=== PATIENT | male | born 1935 | race Caucasian/White ===

== ENCOUNTER → 2017-04-19 | Outpatient (CLI) | payer MEDICARE, BC ==
[~2017-04-19] MED LIST: AMLO5TAB2 PO; ASPI-496 PO; ASPI-650 PO; CIPR500T3 PO; DIGO125T PO; FINA5TAB4 PO; HYDR-3237 PO; HYDR25TA6 PO; METO25TA91 PO; TAMS-11 PO; VALS160T3 PO
== END | disposition home or self-care (01) ==
LOC: CVU 11:41
PROVIDERS: ATTEND Internal Medicine Cardiovascular Disease
DX: R06.00 Dyspnea, unspecified (principal); R06.02 Shortness of breath
CPT/HCPCS: 93306; 94060; 94726; 94729

== ENCOUNTER → 2017-06-16 | Outpatient (CLI) | payer MEDICARE, BC ==
[~2017-06-16] MED LIST changes: +OMNIPAQUE 350 MG/ML, 150 ML BOTTLE ONE
[2017-06-16 14:22] LABS: CREATININE 0.66 mg/dL (0.7-1.3)
== END | disposition home or self-care (01) ==
LOC: CVU 12:32
PROVIDERS: ATTEND Internal Medicine Cardiovascular Disease
DX: Z01.818 Encounter for other preprocedural examination (principal); I65.23 Occlusion and stenosis of bilateral carotid arteries; I35.0 Nonrheumatic aortic (valve) stenosis; E11.9 Type 2 diabetes mellitus without complications
CPT/HCPCS: 36415; 71275; 74174; 82565; 93880; Q9967

== ENCOUNTER → 2017-08-23 | Outpatient (CLI) | payer MEDICARE, BC ==
[~2017-08-23] MED LIST changes: +CLOP75TA PO; -OMNIPAQUE 350 MG/ML, 150 ML BOTTLE ONE
== END | disposition home or self-care (01) ==
LOC: CVU 08:53
PROVIDERS: ATTEND Internal Medicine Cardiovascular Disease
DX: I08.3 Combined rheumatic disorders of mitral, aortic and tricuspid valves (principal); I10 Essential (primary) hypertension
CPT/HCPCS: 93306

== ENCOUNTER 2018-07-24 13:03 | Observation (INO) | payer MEDICARE, BC ==
[~2018-07-24] VITALS: Ht 177.8 cm; Wt 94.2 kg
[~2018-07-24 13:03] MED LIST changes: +AMLO-150 PO; -AMLO5TAB2 PO
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
--- NOTE | 2018-07-24 13:54 | NUR ---
bedside report to CLOVIS Brown.
[2018-07-24] MEDS ORDERED: DIPH,PERTUSS(ACELL),TET VAC/PF 0.5 ML IM-VACC ONE ×2 (14:20→14:30)
[2018-07-24] MEDS ORDERED: HYDROmorphone 1 MG/ML, 1ML ONE (14:20)
[2018-07-24] MEDS ORDERED: HYDROmorphone 1 MG/ML, 1ML IM PRN (14:30)
--- NOTE | 2018-07-24 14:39 | NUR ---
PT TO CT
[2018-07-24] MEDS ORDERED: ONDANSETRON 2MG/ML, 2ML ONE (14:49)
[2018-07-24] MEDS ORDERED: LORazepam 1MG TABLET ONE (14:55)
[2018-07-24] MEDS ORDERED: LABETALOL 5MG/ML, 20ML IVPush ONE (14:59)
[2018-07-24] MEDS ORDERED: LORazepam 1MG TABLET PO ONE (15:00)
[2018-07-24] MEDS ORDERED: LORazepam 2 MG/ML, 1ML IVPush ONE (15:00)
[2018-07-24] MEDS ORDERED: ONDANSETRON 2MG/ML, 2ML IVPush ONE (15:00)
--- NOTE | 2018-07-24 15:43 | NUR ---
NO IV LABETALOL IN MD JAYESH TO CHANGE TO HYDRALAZINE IV
[2018-07-24 15:52] LABS: BASOPHILS % (AUTO) 0 % (0-1); EOSINOPHILS % (AUTO) 0 % (1-7); LYMPHOCYTES # (AUTO) 0.83 x10^3/uL (1-3.4); LYMPHOCYTES % (AUTO) 8 % (22-44); MD NO; MEAN CORPUSCULAR HEMOGLOBIN 33.5 pg (27.5-34.5); MEAN CORPUSCULAR HGB CONC 33.9 g/dL (33.2-36.2); MEAN CORPUSCULAR VOLUME 98.6 fL (81-97); MEAN PLATELET VOLUME 8.9 fL (7.4-10.4); MONOCYTES # (AUTO) 0.36 x10^3/uL (0.2-0.8); MONOCYTES % (AUTO) 4 % (2-9); NEUTROPHILS # (AUTO) 8.69 x10^3/uL (1.8-6.8); NEUTROPHILS % (AUTO) 88 % (42-75); PLATELET COUNT 100 x10^3/uL (130-400); RED BLOOD COUNT 4.83 x10^6/uL (4.38-5.82); RED CELL DISTRIBUTION WIDTH 13.3 % (9.4-14.8)
[2018-07-24 15:59] LABS: ALBUMIN 3.9 g/dL (3.4-5.0); ANION GAP 6 mmol/L (5-15); CALCIUM 8.5 mg/dL (8.5-10.1); CHLORIDE 104 mmol/L (98-107); CREATININE 0.61 mg/dL (0.7-1.3)
[2018-07-24] MEDS ORDERED: hydrALAzine 20 MG/ML, 1ML IV ONE (16:00)
--- NOTE | 2018-07-24 16:05 | NUR ---
ATTEMPTED TO CALL REPORT TO FLOOR RN, STATES SHE IS IN PROCEDURE AND CANNOT TAKE REPORT AT THIS TIME. HYDRALAZINE GIVEN. PT RESTING IN BED AT THIS TIME.
[2018-07-24] MEDS ORDERED: SODIUM CHLORIDE 0.9% 1,000 ML IV SCH (16:31)
[2018-07-24] MEDS ORDERED: NITROGLYCERIN OINT 2%, 1GM TP ONE (16:43)
[2018-07-24] MEDS ORDERED: KETOROLAC 30 MG/1 ML IV PRN (17:00)
[2018-07-24] MEDS ORDERED: GABAPENTIN 300 MG CAPSULE PO PRN (17:00)
[2018-07-24] MEDS ORDERED: morphine SULFATE 10 MG/ML, 1ML IVPush PRN (17:00)
[2018-07-24] MEDS ORDERED: ACETAMINOPHEN 325 MG TABLET PO PRN (17:00)
[2018-07-24] MEDS ORDERED: hydrALAzine 20 MG/ML, 1ML IVPush PRN (17:00)
[2018-07-24] MEDS ORDERED: POLYETHYLENE GLYCOL 17 GM PACKET PO PRN (17:00)
[2018-07-24] MEDS ORDERED: KETOROLAC 30 MG/1 ML IM PRN (17:00)
[2018-07-24] MEDS ORDERED: ONDANSETRON 2MG/ML, 2ML IVPush PRN (17:00)
[2018-07-24] MEDS ORDERED: DOCUSATE 100 MG CAPSULE PO PRN (17:00)
[2018-07-24] MEDS ORDERED: METHOCARBAMOL 500 MG TABLET PO PRN (17:00)
[2018-07-24] MEDS ORDERED: LIDODERM 5% PATCH TD PRN (17:00)
[2018-07-24] MEDS ORDERED: BISACODYL 10 MG SUPP PR PRN (17:00)
[2018-07-24] MEDS ORDERED: ONDANSETRON ODT 4 MG PO PRN (17:00)
[2018-07-24 18:15] VITALS: BP 155/77
[2018-07-24 20:17] VITALS: BP 160/76
[2018-07-24] MEDS: FAMOTIDINE 20 MG/2 ML IVPush SCH (20:35)
[2018-07-24] MEDS ORDERED: DIPHENHYDRAMINE 50 MG CAPSULE ONE (21:15)
[2018-07-24] MEDS ORDERED: DIPHENHYDRAMINE 50 MG CAPSULE PO PRN (21:30)
[2018-07-25 03:07] VITALS: BP 139/65
[2018-07-25 06:06] LABS: BASOPHILS # (AUTO) 0.03 x10^3/uL (0-0.1); BASOPHILS % (AUTO) 0 % (0-1); EOSINOPHILS # (AUTO) 0.02 x10^3/uL (0-0.4); EOSINOPHILS % (AUTO) 0 % (1-7); LYMPHOCYTES # (AUTO) 1.35 x10^3/uL (1-3.4); LYMPHOCYTES % (AUTO) 16 % (22-44); MD NO; MEAN CORPUSCULAR HGB CONC 34.8 g/dL (33.2-36.2); MEAN CORPUSCULAR VOLUME 97.6 fL (81-97); MEAN PLATELET VOLUME 8.9 fL (7.4-10.4); MONOCYTES # (AUTO) 0.82 x10^3/uL (0.2-0.8); MONOCYTES % (AUTO) 10 % (2-9); NEUTROPHILS # (AUTO) 6.04 x10^3/uL (1.8-6.8); NEUTROPHILS % (AUTO) 73 % (42-75); PLATELET COUNT 100 x10^3/uL (130-400); RED BLOOD COUNT 4.47 x10^6/uL (4.38-5.82); RED CELL DISTRIBUTION WIDTH 13.7 % (9.4-14.8)
[2018-07-25 06:14] LABS: ANION GAP 3 mmol/L (5-15); CHLORIDE 106 mmol/L (98-107); CREATININE 0.58 mg/dL (0.7-1.3)
[2018-07-25 06:23] LABS: THYROID STIMULATING HORMONE 0.964 mIU/L (0.358-3.740)
[2018-07-25 06:28] LABS: HEMOGLOBIN A1C 5.6 % (4.2-6.3)
[2018-07-25 07:20] VITALS: BP 145/71
[2018-07-25] MEDS: VALSARTAN 160 MG TABLET PO SCH (08:51)
[2018-07-25] MEDS: HYDROCHLOROTHIAZIDE 25 MG TABLET PO SCH (08:51)
[2018-07-25] MEDS: DIGOXIN 0.125 MG TABLET PO SCH (08:51)
[2018-07-25] MEDS: FAMOTIDINE 20 MG/2 ML IVPush SCH ×2 (08:52→22:14)
[2018-07-25] MEDS: METOPROLOL SUCCINATE 25 MG TAB.ER.24H PO SCH (08:52)
[2018-07-25] MEDS ORDERED: ASPIRIN 81 MG TABLET EC PO SCH (09:00)
[2018-07-25] MEDS: HYDROcodone/APAP 5/325 TABLET PO PRN ×2 (09:53→22:14)
[2018-07-25] MEDS ORDERED: ACET325T14 PO (13:16)
[2018-07-25 13:42] VITALS: BP 137/62
[2018-07-25 19:11] VITALS: BP 170/85
[2018-07-26 01:36] VITALS: BP 178/80
[2018-07-26 02:54] VITALS: BP 161/78
[2018-07-26 08:00] VITALS: BP 172/75
[2018-07-26] MEDS: VALSARTAN 160 MG TABLET PO SCH (08:23)
[2018-07-26] MEDS: HYDROCHLOROTHIAZIDE 25 MG TABLET PO SCH (08:23)
[2018-07-26] MEDS: METOPROLOL SUCCINATE 25 MG TAB.ER.24H PO SCH (08:23)
[2018-07-26] MEDS: FAMOTIDINE 20 MG/2 ML IVPush SCH (08:23)
[2018-07-26] MEDS: DIGOXIN 0.125 MG TABLET PO SCH (08:23)
[2018-07-26] MEDS ORDERED: TAMSULOSIN 0.4 MG CAP.ER.24H PO SCH (09:00)
== END 2018-07-26 12:27 | disposition home or self-care (01) ==
LOC: ED 15:24 → EDIP 15:45 → INTOOBSV 15:45 → 3NE 16:37 → EDIP 16:45 → 4WST 17:30
PROVIDERS: ADMIT Internal Medicine; ATTEND Emergency Medicine
DX: S12.101A Unspecified nondisplaced fracture of second cervical vertebra, initial encounter for closed fracture (principal); I11.0 Hypertensive heart disease with heart failure; I50.30 Unspecified diastolic (congestive) heart failure; M50.30 Other cervical disc degeneration, unspecified cervical region; D75.89 Other specified diseases of blood and blood-forming organs; E87.6 Hypokalemia; S00.01XA Abrasion of scalp, initial encounter; N40.0 Benign prostatic hyperplasia without lower urinary tract symptoms; I48.0 Paroxysmal atrial fibrillation; D69.6 Thrombocytopenia, unspecified; I27.20 Pulmonary hypertension, unspecified; I35.0 Nonrheumatic aortic (valve) stenosis; I71.4 Abdominal aortic aneurysm, without rupture; R79.89 Other specified abnormal findings of blood chemistry; V89.2XXA Person injured in unspecified motor-vehicle accident, traffic, initial encounter; W22.8XXA Striking against or struck by other objects, initial encounter; Y92.410 Unspecified street and highway as the place of occurrence of the external cause; Z85.46 Personal history of malignant neoplasm of prostate; Z85.51 Personal history of malignant neoplasm of bladder; Z86.79 Personal history of other diseases of the circulatory system; Z87.891 Personal history of nicotine dependence; Z95.2 Presence of prosthetic heart valve; Z23 Encounter for immunization
CPT/HCPCS: 36415; 70450; 71045; 72125; 80048; 82040; 83036; 84443; 85025; 90471; 90715; 93005; 96372; 96374; 96375; 96376; 97162; 97166; 99291; G0378; J0360; J1170; J3490; J7030

== ENCOUNTER → 2018-08-30 | Outpatient (CLI) | payer MEDICARE, BC ==
[~2018-08-30] MED LIST changes: +ACET325T14 PO
== END | disposition home or self-care (01) ==
LOC: CVU 08:18
PROVIDERS: ATTEND Internal Medicine Cardiovascular Disease
DX: I08.8 Other rheumatic multiple valve diseases (principal); G45.9 Transient cerebral ischemic attack, unspecified; I10 Essential (primary) hypertension; Z95.2 Presence of prosthetic heart valve
CPT/HCPCS: 93306

== ENCOUNTER → 2018-09-13 | Outpatient (CLI) | payer MEDICARE, BC | END | disposition home or self-care (01) | LOC: CFH 09:11 | PROVIDERS: ATTEND Nurse Practitioner | DX: S12.100D Unspecified displaced fracture of second cervical vertebra, subsequent encounter for fracture with routine healing (principal); M50.31 Other cervical disc degeneration, high cervical region; M48.02 Spinal stenosis, cervical region; X58.XXXD Exposure to other specified factors, subsequent encounter | CPT/HCPCS: 72125 ==

== ENCOUNTER → 2018-11-02 | Outpatient (CLI) | payer MEDICARE, BC | END | disposition home or self-care (01) | LOC: CVU 08:35 | PROVIDERS: ATTEND Internal Medicine Cardiovascular Disease | DX: I65.23 Occlusion and stenosis of bilateral carotid arteries (principal); I35.0 Nonrheumatic aortic (valve) stenosis; I10 Essential (primary) hypertension | CPT/HCPCS: 93880 ==

== ENCOUNTER 2018-12-27 16:45 | Outpatient (CLI) | payer MEDICARE, BC | END 2018-12-27 23:59 | disposition home or self-care (01) | LOC: CFH 16:45 | PROVIDERS: ATTEND Nurse Practitioner Family | DX: S12.100A Unspecified displaced fracture of second cervical vertebra, initial encounter for closed fracture (principal); M43.12 Spondylolisthesis, cervical region; M47.812 Spondylosis without myelopathy or radiculopathy, cervical region; M50.30 Other cervical disc degeneration, unspecified cervical region; X58.XXXA Exposure to other specified factors, initial encounter; Y93.89 Activity, other specified; Y92.89 Other specified places as the place of occurrence of the external cause; Y99.8 Other external cause status | CPT/HCPCS: 72050 ==

== ENCOUNTER → 2019-12-07 | Outpatient (CLI) | payer MEDICARE, BC ==
[~2019-12-07] MED LIST changes: -DIGO125T PO; +DIGO125T85 PO
== END | disposition home or self-care (01) ==
LOC: CFH 09:01
PROVIDERS: ATTEND Internal Medicine Cardiovascular Disease
DX: J43.2 Centrilobular emphysema (principal); J84.10 Pulmonary fibrosis, unspecified; J18.9 Pneumonia, unspecified organism
CPT/HCPCS: 71250